=== PATIENT | female | born 1970 | race Caucasian/White ===

== ENCOUNTER 2016-09-05 19:00 | Emergency (ER) | payer MEDICAID, OTHER ==
[~2016-09-05] VITALS: Ht 154.9 cm; Wt 92.0 kg
[~2016-09-05 19:00] MED LIST: [UNRECOGNIZED DRUG - REMARK] PO
[2016-09-05 21:36] LABS: HEMOGLOBIN 11.7 g/dL (11.7-16.4)
[2016-09-05 21:37] LABS: HCG UR OBC PASS
[2016-09-05 21:49] LABS: BLOOD UREA NITROGEN 9 mg/dL (7-18)
[2016-09-05 23:20] VITALS: BP 126/59
== END 2016-09-05 23:22 | disposition home or self-care (01) ==
LOC: ED 21:21
DX: R42 Dizziness and giddiness (principal); K21.9 Gastro-esophageal reflux disease without esophagitis
CPT/HCPCS: 36415; 80048; 81001; 81025; 82040; 85025; 87086; 93005

== ENCOUNTER 2016-12-01 18:27 | Emergency (ER) | payer MEDICAID, OTHER ==
[~2016-12-01] VITALS: Ht 154.9 cm; Wt 96.3 kg
[2016-12-01] MEDS ORDERED: "\\\"BLOOD PRESSURE MED\\\"" PO (19:03)
[2016-12-01 20:59] VITALS: BP 146/78
== END 2016-12-01 21:26 | disposition home or self-care (01) ==
LOC: ED 21:20
DX: S63.641A Sprain of metacarpophalangeal joint of right thumb, initial encounter (principal); S63.522A Sprain of radiocarpal joint of left wrist, initial encounter; S93.402A Sprain of unspecified ligament of left ankle, initial encounter; I10 Essential (primary) hypertension; K21.9 Gastro-esophageal reflux disease without esophagitis; W01.0XXA Fall on same level from slipping, tripping and stumbling without subsequent striking against object, initial encounter; Y93.89 Activity, other specified; Y92.89 Other specified places as the place of occurrence of the external cause; Y99.8 Other external cause status
CPT/HCPCS: 99284

== ENCOUNTER 2016-12-14 19:58 | Emergency (ER) | payer OTHER ==
[~2016-12-14] VITALS: Ht 154.9 cm; Wt 97.2 kg
[~2016-12-14 19:58] MED LIST changes: +"\\\"BLOOD PRESSURE MED\\\"" PO
[2016-12-14 20:00] VITALS: BP 155/92
[2016-12-14] MEDS ORDERED: KETOROLAC 30 MG/1 ML ONE (20:22)
[2016-12-14] MEDS ORDERED: KETOROLAC 30 MG/1 ML IM ONE (20:30)
== END 2016-12-14 21:39 | disposition home or self-care (01) ==
LOC: ED 21:33
DX: S93.622A Sprain of tarsometatarsal ligament of left foot, initial encounter (principal); S93.492A Sprain of other ligament of left ankle, initial encounter; I10 Essential (primary) hypertension; K21.9 Gastro-esophageal reflux disease without esophagitis; X58.XXXA Exposure to other specified factors, initial encounter; Y93.01 Activity, walking, marching and hiking; Y92.89 Other specified places as the place of occurrence of the external cause; Y99.8 Other external cause status
CPT/HCPCS: 73630; 82962; 96372; 99284; J1885

== ENCOUNTER 2017-02-21 20:01 | Emergency (ER) | payer MEDICAID, OTHER ==
[~2017-02-21] VITALS: Ht 154.9 cm; Wt 101.0 kg
[2017-02-21 20:03] VITALS: BP 122/80
== END 2017-02-21 22:59 | disposition home or self-care (01) ==
LOC: ED 22:53
DX: M25.562 Pain in left knee (principal); G89.29 Other chronic pain; M13.10 Monoarthritis, not elsewhere classified, unspecified site
CPT/HCPCS: 99284

== ENCOUNTER 2017-04-27 20:03 | Emergency (ER) | payer MEDICAID ==
[~2017-04-27] VITALS: Ht 154.9 cm; Wt 104.6 kg
[2017-04-27 20:14] VITALS: BP 154/102
== END 2017-04-27 21:33 | disposition home or self-care (01) ==
LOC: ED 20:49
DX: M79.672 Pain in left foot (principal); I10 Essential (primary) hypertension; K21.9 Gastro-esophageal reflux disease without esophagitis
CPT/HCPCS: 99284

== ENCOUNTER 2018-01-12 20:00 | Emergency (ER) | payer MEDICAID ==
[~2018-01-12] VITALS: Ht 154.9 cm; Wt 105.0 kg
[2018-01-12 20:08] VITALS: BP 152/91
== END 2018-01-12 21:17 | disposition home or self-care (01) ==
LOC: ED 21:10
DX: M13.162 Monoarthritis, not elsewhere classified, left knee (principal); I10 Essential (primary) hypertension; K21.9 Gastro-esophageal reflux disease without esophagitis
CPT/HCPCS: 99284

== ENCOUNTER 2018-05-02 19:01 | Emergency (ER) | payer MEDICAID ==
[~2018-05-02] VITALS: Ht 154.9 cm; Wt 102.1 kg
[2018-05-02 19:06] VITALS: BP 161/97
== END 2018-05-02 20:43 | disposition home or self-care (01) ==
LOC: ED 20:41
DX: S63.522A Sprain of radiocarpal joint of left wrist, initial encounter (principal); S63.512A Sprain of carpal joint of left wrist, initial encounter; W01.0XXA Fall on same level from slipping, tripping and stumbling without subsequent striking against object, initial encounter; Y93.01 Activity, walking, marching and hiking; Y92.410 Unspecified street and highway as the place of occurrence of the external cause; Y99.8 Other external cause status
CPT/HCPCS: 29125; 99283